=== PATIENT | female | born 1995 | race Caucasian/White ===

== ENCOUNTER 2021-12-07 21:39 | Emergency (ER) | payer SELFPAY ==
[2021-12-07 21:48] VITALS: BP 118/71; PULSE 88; RESP 16; TEMP 36.6; O2SAT 98; BMI 21.4
== END 2021-12-08 00:33 | disposition left against medical advice (07) ==
PROVIDERS: Emergency Provider Emergency Medicine
DX: Z04.1 Encounter for examination and observation following transport accident (principal); M79.644 Pain in right finger(s); M79.662 Pain in left lower leg
CPT/HCPCS: 99282